=== PATIENT | female | born 2000 | race Caucasian/White ===

== ENCOUNTER 2024-01-15 14:57 | Inpatient (IN) | payer OTHER ==
[2024-01-15] MEDS ORDERED: Ondansetron 4 MG/2 ML SDV IVPUSH PRN (15:18)
[2024-01-15] MEDS ORDERED: Nalbuphine 10 MG/ML Syringe IVPUSH PRN (15:18)
[2024-01-15] MEDS ORDERED: Acetaminophen 325 MG Tab PO PRN ×2 (15:18→23:54)
[2024-01-15] MEDS ORDERED: Calcium Carbonate 500 MG Tab.Chew PO PRN (15:18)
[2024-01-15] MEDS ORDERED: Lidocaine 1% 50 ML MDV INJECT PRN (15:18)
[2024-01-15 15:39] LABS: BASOPHILS ABSOLUTE AUTO 0.1 K/mm3 (0.0-0.2); BASOPHILS PERCENT AUTO 0.4 % (0.0-1.0); EOSINOPHILS ABSOLUTE AUTO 0.2 K/mm3 (0.0-0.4); EOSINOPHILS PERCENT AUTO 1.5 % (0.0-6.0); HEMATOCRIT 41.2 % (37.0-47.0); HEMOGLOBIN 14.3 gm/dl (12.0-16.0); IMMATURE GRAN ABSOLUTE AUTO 0.04 K/mm3 (0.00-0.05); IMMATURE GRAN PERCENT AUTO 0.3 % (0.0-0.4); LYMPHOCYTES ABSOLUTE AUTO 2.1 K/mm3 (1.0-4.8); LYMPHOCYTES PERCENT AUTO 16.4 % (24.0-44.0); MEAN CORPUSCULAR HEMOGLOBIN 30.6 pg (28.0-32.0); MEAN CORPUSCULAR HGB CONC 34.7 g/dl (32.0-36.0); MEAN PLATELET VOLUME 9.6 fl (9.4-12.3); MONOCYTES ABSOLUTE AUTO 0.7 K/mm3 (0.0-0.8); MONOCYTES PERCENT AUTO 5.3 % (0.0-8.0); NEUTROPHILS ABSOLUTE AUTO 9.9 K/mm3 (1.8-7.7); NEUTROPHILS PERCENT AUTO 76.1 % (41.0-71.0); PLATELET COUNT,PLT 242 K/mm3 (150-400); RED BLOOD CELL COUNT 4.68 M/mm3 (4.10-5.30); WHITE BLOOD CELL COUNT,WBC 12.96 K/mm3 (3.9-11.3)
[2024-01-15] MEDS: Lactated Ringers 1,000 ML IV SCH (23:00)
[2024-01-15] MEDS: Oxytocin/0.9 % Sodium Chloride 30 UNIT/500 ML BAG IV SCH (23:10)
[2024-01-15] MEDS ORDERED: Docusate Sodium 100 MG Cap PO PRN (23:54)
[2024-01-15] MEDS ORDERED: Witch Hazel Medicated Pads 40/Jar TOP PRN (23:54)
[2024-01-16] MEDS: Oxytocin/0.9 % Sodium Chloride 30 UNIT/500 ML BAG IV SCH (00:34)
[2024-01-16] MEDS: Benzocaine/Menthol 20%-0.5% Spray 78 GM Cannister TOP PRN (00:39)
[2024-01-16] MEDS: Ibuprofen 600 MG Tab PO SCH ×2 (01:09→13:53)
[2024-01-16] MEDS: Methylergonovine 0.2 MG/1 ML Amp IM STA (01:12)
== END 2024-01-17 09:15 | disposition home or self-care (01) | DRG 807 ==
LOC: JD.OBCHECK 14:57 → JD.OB 15:02 → JD.OBCHECK 15:17 → JD.OB 15:18 → OBSVTOIN 23:07 → JD.OB 23:08
PROVIDERS: ADMIT Obstetrics & Gynecology; ATTEND Obstetrics & Gynecology
PROC: 10E0XZZ Delivery of Products of Conception, External Approach (ICD-10-PCS; principal; 2024-01-15)
PROC: 10907ZC Drainage of Amniotic Fluid, Therapeutic from Products of Conception, Via Natural or Artificial Opening (ICD-10-PCS; 2024-01-15)
DX: O48.0 Post-term pregnancy (principal); Z37.0 Single live birth; O77.0 Labor and delivery complicated by meconium in amniotic fluid; Z3A.40 40 weeks gestation of pregnancy
CPT/HCPCS: 36415; 59025; 59409; 85025; 86592; 86850; 86900; 86901; A9270-GY; J2210; J7120